=== PATIENT | female | born 1990 | race Caucasian/White ===

== ENCOUNTER 2017-09-09 09:27 | Day surgery (SDC) | payer BC ==
[2017-09-09] MEDS ORDERED: Lidocaine 1% with EPINEPHrine 1:100,000 50 ML MDV ONE (10:17)
[2017-09-09] MEDS ORDERED: Bupivacaine 0.5% 50 ML MDV ONE (10:17)
[2017-09-09] MEDS: Dextrose 5%-Lactated Ringers 1,000 ML IV SCH ×2 (10:35→23:03)
[2017-09-09] MEDS ORDERED: cefOXitin 2 GM in Sodium Chloride 0.9% 50 ML IV ONE (10:45)
[2017-09-09] MEDS ORDERED: Ondansetron 4 MG/2 ML SDV ONE (10:55)
[2017-09-09] MEDS ORDERED: Dexamethasone 4 MG/ML SDV ONE (10:55)
[2017-09-09] MEDS ORDERED: Glycopyrrolate 0.2 MG/ML 5 ML MDV ONE (10:55)
[2017-09-09] MEDS ORDERED: Rocuronium 50 MG/5 ML Vial ONE (10:55)
[2017-09-09] MEDS ORDERED: Neostigmine Methylsulfate 1 MG/ML 5 ML Syringe ONE (10:55)
[2017-09-09] MEDS ORDERED: Propofol 200 MG/20 ML SDV ONE (10:55)
[2017-09-09] MEDS ORDERED: hydrOXYzine HCl 100 MG/2 ML SDV IM ONE (13:29)
[2017-09-09] MEDS ORDERED: Ondansetron 4 MG/2 ML SDV IVPUSH PRN (13:38)
[2017-09-09] MEDS ORDERED: fentaNYL 100 MCG/2 ML SDV IVPUSH PRN (13:38)
[2017-09-09] MEDS ORDERED: fentaNYL 100 MCG/2 ML SDV IVPUSH ONE (13:45)
[2017-09-09] MEDS: Acetaminophen/HYDROcodone 325-5 MG Tab PO PRN ×2 (19:01→22:58)
[2017-09-10] MEDS: Acetaminophen/HYDROcodone 325-5 MG Tab PO PRN ×2 (04:09→07:42)
--- NOTE | 2017-09-10 05:26 | PCM.DCSUM1 ---
Discharge Summary - Hospital Course Free Text/Narrative:: This 27 year old white female complained of right upper quadrant abdominal pain after eating. An abdominal ultrasound was unremarkable. A CCK stimulated HIDA was abnormal with an ejection fraction of about 16% consistent with biliary dyskinesia and chronic cholecystitis. Her LFT's were unremarkable. She underwent a laparoscopic cholecystectomy on September 09, 2017. Today she is eating , feels well and wants to do home. She is discharged at this time in good condition. - Discharge Data Discharge Date: 09/10/17 Discharge Disposition: Home, Self-Care 01 Condition: Good - Patient Summary/Data Operative Procedure(s) Performed: Laparoscopic cholecystectomy on September 09, 2017. Consults: Consultations 09/09/17 13:38 Respiratory Care Assess and Treatment [CONS] Routine Comment: Physician Instructions: Post-Op Pneumonia Prevention 09/09/17 13:42 Respiratory Care Assess and Treatment [CONS] Routine Comment: Physician Instructions: Hospital Course: See above narrative. - Patient Instructions Diet: Usual Diet as Tolerated Activity: As Tolerated (Avoid activity that causes discomfort. ) Driving, Other: Do not drive while taking narcotic pain medication Showering/Bathing: May Shower Notify Provider of: Fever, Increased Pain, Swelling and Redness, Drainage, Nausea and/or Vomiting - Discharge Plan Prescriptions/Med Rec: Acetaminophen/HYDROcodone [[place] 325-5 MG] 2 tab PO Q4H PRN #30 tablet PRN Reason: Pain (Moderate 4-6) Home Medications: Home Meds Levocetirizine Dihydrochloride [Xyzal] 5 mg PO DAILY 09/08/17 [History] Olopatadine [[place] 0.2% Ophth Soln] 1 drop OP DAILY 09/08/17 [History] Triamcinolone Acetonide [Nasacort AQ [place]] 2 spray NICOLA DAILY 09/08/17 [History] Acetaminophen/HYDROcodone [[place] 325-5 MG] 2 tab PO Q4H PRN #30 tablet 09/10/17 [Rx] Referrals: Brian Venegas MD [Physician] - (See me in about two weeks in [facility]. ) - Discharge Summary/Plan Comment DC Time >30 min.: Yes Discharge Summary/Plan Comment: See above narrative. - Patient Data Vitals - Most Recent: Last Vital Signs Temp 99.7 F 09/10/17 03:00 Pulse 90 04/05/18 03:00 Resp 18 09/10/17 03:00 BP 127/74 09/10/17 03:00 Pulse Ox 97 09/10/17 03:00 Weight - Most Recent: 188 lb I&O - Last 24 hours: Intake & Output 09/09/17 09/09/17 09/10/17 14:59 22:59 06:59 Intake Total 100 559 890 Output Total 850 600 Balance 100 -291 290 Lab Results - Last 24 hrs: Laboratory Results - last 24 hr 09/09/17 09/10/17 09/10/17 Range/Units 09:46 04:48 04:48 WBC 12.6 H (4.5-11.0) K/uL RBC 4.25 (3.30-5.50) M/uL Hgb 11.7 L (12.0-15.0) g/dL Hct 35.5 L (36.0-48.0) % MCV 84 (80-98) fL MCH 28 (27-31) pg MCHC 33 (32-36) % Plt Count 251 (150-400) K/uL Total Bilirubin 0.3 (0.2-1.0) mg/dL Direct Bilirubin 0.08 (0.0-0.2) mg/dL Indirect Bilirubin TNP AST 26 (15-37) U/L ALT 34 (12-78) U/L Alkaline Phosphatase 44 L (46-116) U/L Total Protein 6.7 (6.4-8.2) g/dL Albumin 3.4 (3.4-5.0) g/dL Globulin 3.3 (2.3-3.5) g/dL Albumin/Globulin Ratio 1.0 L (1.2-2.2) Urine HCG, Qual Negative ROBERT Results - Last 24 hrs: Microbiology 09/09/17 13:12 Gram Stain - Final Gallbladder Med Orders - Current: Current Medications Hydrocodone Bitart/Acetaminophen ([place] 325-5 Mg) 2 tab PO Q4H PRN PRN Reason: Pain (moderate 4-6) Last Admin: 09/10/17 04:09 Dose: 2 tab Cetirizine HCl (Zyrtec) 10 mg PO DAILY [facility] Fentanyl (Sublimaze) 50 mcg IVPUSH Q1H PRN PRN Reason: Pain (severe 7-10) Last Admin: 09/09/17 15:36 Dose: 50 mcg Fluticasone Propionate (Flonase) 0 gm NASBOTH DAILY [facility] Dextrose/Lactated Ringer's (Dextrose 5%-Lactated Ringers) 1,000 mls @ 125 mls/ hr IV ASDIRECTED [facility] Last Admin: 09/09/17 23:03 Dose: 100 mls/hr Ketotifen Fumarate (Ketotifen 0.025% Ophth Soln) 0 ml EYEBOTH DAILY [facility] Ondansetron HCl (Zofran) 4 mg IVPUSH Q4H PRN PRN Reason: Nausea/Vomiting Last Admin: 09/09/17 17:49 Dose: 4 mg Discontinued Medications Bupivacaine HCl (Marcaine 0.5%) Confirm Administered Dose 50 ml .ROUTE .STK-MED ONE Stop: 09/09/17 10:18 Last Admin: 09/09/17 13:17 Dose: 20 ml Dexamethasone (Dexamethasone) Confirm Administered Dose 4 mg .ROUTE .STK-MED ONE Stop: 09/09/17 10:56 Fentanyl (Sublimaze) 100 mcg IVPUSH ONETIME ONE Stop: 09/09/17 13:46 Last Admin: 09/09/17 13:50 Dose: 100 mcg Fentanyl Citrate (Fentanyl) Confirm Administered Dose 500 mcg .ROUTE .STK-MED ONE Stop: 09/09/17 10:58 Glycopyrrolate (Robinul) Confirm Administered Dose 1 mg .ROUTE .STK-MED ONE Stop: 09/09/17 10:56 Hydroxyzine HCl (Vistaril) 100 mg IM ONETIME ONE Stop: 09/09/17 13:30 Last Admin: 09/09/17 13:34 Dose: 100 mg Cefoxitin Sodium 2 gm/ Sodium (Chloride) 50 mls @ 100 mls/hr IV ONETIME ONE Stop: 09/09/17 11:14 Last Admin: 09/09/17 12:40 Dose: 100 mls/hr Lidocaine/Epinephrine (Xylocaine 1% With Epinephrine 1:100,000) Confirm Administered Dose 50 ml .ROUTE .STK-MED ONE Stop: 09/09/17 10:18 Last Admin: 09/09/17 13:17 Dose: 20 ml Neostigmine Methylsulfate (Neostigmine) Confirm Administered Dose 5 mg .ROUTE .STK-MED ONE Stop: 09/09/17 10:56 Ondansetron HCl (Zofran) Confirm Administered Dose 4 mg .ROUTE .STK-MED ONE Stop: 09/09/17 10:56 Propofol (Diprivan 20 Ml) Confirm Administered Dose 200 mg .ROUTE .STK-MED ONE Stop: 09/09/17 10:56 Rocuronium Sisters (Zemuron) Confirm Administered Dose 50 mg .ROUTE .ST-MED ONE Stop: 09/09/17 10:56
[2017-09-10] MEDS ORDERED: Ketotifen 0.025% Ophth Soln 5 ML Bottle EYEBOTH SCH (09:00)
[2017-09-10] MEDS ORDERED: Cetirizine 10 MG Tab PO SCH (09:00)
[2017-09-10] MEDS ORDERED: Fluticasone Propionate Nasal Spray 16 GM Bottle NASBOTH SCH (09:00)
--- NOTE | 2017-09-10 09:42 | OR ---
DATE OF PROCEDURE: 09/09/2017 PREOPERATIVE DIAGNOSIS: Chronic cholecystitis with biliary dyskinesia. POSTOPERATIVE DIAGNOSIS: Chronic cholecystitis with biliary dyskinesia. PROCEDURE: Laparoscopic cholecystectomy. SURGEON: Brian Venegas MD ANESTHESIA: General endotracheal. INDICATION: This 27-year-old white female has been complaining of intermittent episodes of epigastric and right upper quadrant abdominal pain that radiates around to her back. This is associated with food, as it occurs in the postprandial timeframe. She had an abdominal ultrasound, which was unremarkable. A CCK stimulated HIDA scan, however, was markedly abnormal with ejection fraction only 16.5%, consistent with chronic cholecystitis and biliary dyskinesia. She has had no prior abdominal surgery. Her urinary HCG is negative. She is taken to the operating room for a laparoscopic cholecystectomy. I counseled her for surgery, including risks and alternatives, and she gave her informed consent to proceed. DESCRIPTION OF PROCEDURE: After adequate general endotracheal anesthesia was obtained, the patient's abdomen was prepped and draped in the usual sterile fashion. The leg compression stockings were in place and used during the entire procedure. Time-out was held. An infraumbilical semicircular incision was made. Under direct vision, a 12 mm port was introduced into the abdomen through this incision using the Optiview technique. The camera was introduced into the abdomen, and the abdomen was insufflated to a pressure of 20 mmHg with carbon dioxide. No evidence of intraabdominal injury was seen. Under direct vision, a 12-mm port was placed in the epigastrium and a 5-mm port was placed in the right lower quadrant. The gallbladder was grasped and elevated. There were some \adhesions to it, consistent with chronic cholecystitis. These were dissected free. The cystic duct and arteries were dissected free. They were each clipped up on the gallbladder once and then 3 times proximally and then divided between clips. Some lymphatics were clipped and divided. The gallbladder was then dissected free from the gallbladder bed using Bovie electrocautery. The gallbladder was placed in a sample retrieval bag and elevated up through the anterior abdominal wall via the epigastric port site. We did have a little spillage in the abdomen which we irrigated and aspirated from the abdomen. The epigastric port was reintroduced back in the abdomen. The gallbladder bed looked well. The fascial closure device was used to place an 0 Vicryl stitch in the epigastric fascial defect. The infraumbilical port was removed with an interrupted stitch of 0 Vicryl used to close this fascial defect. We evacuated as much CO2 from the abdomen as we could via the 5-mm port site in the right lower quadrant, and then this port was removed. Lidocaine 1% with epinephrine in a 50:50 mix with 0.5% Marcaine was infiltrated about all incisions. 4-0 Vicryl using a subcuticular stitch was placed to approximate the skin of the incisions. Dermabond was applied. The anesthesia was reversed. She was extubated and brought to the recovery room in good condition, having tolerated the procedure well. Brian Venegas MD /[id number] MTDD
== END 2017-09-10 09:15 | disposition home or self-care (01) ==
LOC: JP.SDS 09:27 → JP.MS 13:38 → JP.SDS 09-10 09:15
PROVIDERS: ATTEND Surgery
DX: K81.1 Chronic cholecystitis (principal); E28.2 Polycystic ovarian syndrome; Z79.899 Other long term (current) drug therapy
CPT/HCPCS: 36415; 47562; 80076; 81025; 85027; 87070; 87075; 87205; 88304; 94762; A9270; J0694; J1100; J2405; J2704; J2710; J3010; J3410; J7042; J7050